=== PATIENT | female | born 1975 | race Caucasian/White ===

== ENCOUNTER 2017-02-17 10:27 | Emergency (ER) | payer SELFPAY ==
--- NOTE | 2017-02-17 12:35 | ER Document Report ---
ED GI/ - General Chief Complaint: Abdominal Pain Stated Complaint: LOWER ABDOMINAL PAIN Time Seen by Provider: 02/17/17 12:22 Mode of Arrival: Ambulatory Information source: Patient Notes: This 41-year-old female patient comes emergency room complaining of 5 day history of medial left lower quadrant abdominal tenderness. There is no nausea vomiting or diarrhea. There is no fever. Her last menstrual period was 2016, it was a little late, it lasted 2 days. Normally they last 4 days. She did have a uterine ablation 2014 for heavy periods, she still does have periods but they are much reel slitter than they were before the ablation. There is no control. TRAVEL OUTSIDE OF THE [place] IN LAST 30 DAYS: No - Related Data Allergies/Adverse Reactions: No Known Allergies Allergy (Unverified 02/17/17 10:29) Past Medical History - General Information source: Patient - Social History Smoking Status: Current Every Day Smoker Cigarette use (# per day): Yes - 1/2 PPD Chew tobacco use (# tins/day): No Smoking Education Provided: No Frequency of alcohol use: Social Drug Abuse: None Occupation: [employer] Lives with: Family Family History: Reviewed & Not Pertinent - Medical History Medical History: Negative Past Surgical History: Reports: Hx Breast Surgery - Breast reduction 2015, Hx Gynecologic Surgery - Uterine ablation 2014 Review of Systems - Review of Systems Constitutional: No symptoms reported EENT: No symptoms reported Cardiovascular: No symptoms reported Respiratory: No symptoms reported Gastrointestinal: No symptoms reported Genitourinary: No symptoms reported Female Genitourinary: See HPI Musculoskeletal: No symptoms reported Skin: No symptoms reported Hematologic/Lymphatic: No symptoms reported Neurological/Psychological: No symptoms reported Physical Exam - Vital signs Vitals: Temp Pulse Resp BP Pulse Ox 98.5 F 92 18 147/80 H 98 02/17/17 10:34 02/17/17 10:34 02/17/17 10:34 02/17/17 10:34 02/17/17 10:34 Interpretation: Normal - General General appearance: Appears well, Alert In distress: Mild - Sitting in a chair mildly uncomfortable from the left lower quadrant pelvic tenderness - HEENT Head: Normocephalic, Atraumatic Eyes: Normal Pupils: PERRL Pharynx: Normal Neck: Normal - Respiratory Respiratory status: No respiratory distress Breath sounds: Normal - Cardiovascular Rhythm: Regular Heart sounds: Normal auscultation Murmur: No - Abdominal Inspection: Obese Bowel sounds: Normal Tenderness: Tender - Very tender to palpate the left lower quadrant medially. Palpating the right lower quadrant causes pain in the left lower quadrant. - Back Back: Normal - Extremities General upper extremity: Normal inspection General lower extremity: Normal inspection - Neurological Neuro grossly intact: Yes - Psychological Associated symptoms: Normal affect, Normal mood - Skin Skin Temperature: Warm Skin Moisture: Dry Skin Color: Normal Course - Re-evaluation Re-evalutation: 02/17/17 12:35 Patient's history and exam are concerning for an ectopic . Ultrasound will be ordered before the results of the patency test are returned. - Vital Signs Vital signs: Temp Pulse Resp BP Pulse Ox 98.5 F 92 18 147/80 H 98 02/17/17 10:34 02/17/17 10:34 02/17/17 10:34 02/17/17 10:34 02/17/17 10:34 - Laboratory Result Diagrams: 02/17/17 12:45 02/17/17 12:45 Laboratory results interpreted by me: 02/17/17 12:45 Calcium 10.3 H - Diagnostic Test Radiology reviewed: Image reviewed, Reports reviewed - Ultrasound shows a little free fluid in the left adnexal region, with no other abnormality. Noncontrast CT scan shows epiploic appendagitis of the sigmoid colon - Consults Dr. Smith Time consulted: 18:05 Consulted provider: other - Case discussed. Recommend NSAIDs and pain control. Return if any worsening or new symptoms. Usually is self-limited after the involved appendage infarcts and resorbs. Discharge - Discharge Clinical Impression: Epiploic appendagitis Condition: Stable Disposition: HOME, SELF-CARE Additional Instructions: Your CT scan shows epiploic appendagitis of the sigmoid colon. The treatment for this will be to take Motrin 800 mg every 8 hours or Aleve 2 tablets every 12 hours. You will receive a prescription for a narcotic pain medication to take if you need that to help control the pain. Rest and take it easy until your pain has resolved. Follow-up with local medical doctor as needed. RETURN TO THE EMERGENCY ROOM IF ANY NEW OR WORSENING SYMPTOMS. Prescriptions: Oxycodone HCl/Acetaminophen [Percocet 5-325 mg Tablet] 1 tab PO ASDIR PRN #15 tablet PRN Reason:
[2017-02-17 12:58] LABS: ABSOLUTE EOSINOPHILS # (AUTO) 0.1 10^3/uL (0.0-0.6); ABSOLUTE LYMPHOCYTES (AUTO) 1.8 10^3/uL (0.5-4.7); ABSOLUTE MONOCYTES (AUTO) 0.5 10^3/uL (0.1-1.4); ABSOLUTE NEUT (AUTO) 6.6 10^3/uL (1.7-8.2); BASOPHILS % (AUTO) 0.4 % (0-2); HEMATOCRIT 42.2 % (36.0-47.0); HEMOGLOBIN 14.5 g/dL (12.0-15.5); LYMPHOCYTES % (AUTO) 20.2 % (13-45); MEAN CORPUSCULAR HEMOGLOBIN 30.2 pg (27.0-33.4); MEAN CORPUSCULAR HGB CONC 34.3 g/dL (32.0-36.0); MEAN CORPUSCULAR VOLUME 88 fl (80-97); MONOCYTES % (AUTO) 5.3 % (3-13); PLATELET COUNT 234 10^3/uL (150-450); SEGMENTED NEUTROPHILS % (AUTO) 73.1 % (42-78); TOTAL CELLS COUNTED % (AUTO) 100 %
[2017-02-17 13:01] LABS: APPEARANCE,URINE CLEAR; BILIRUBIN,URINE NEGATIVE (NEGATIVE); COLOR,URINE YELLOW; GLUCOSE, URINE NEGATIVE (NEGATIVE); KETONES,URINE NEGATIVE (NEGATIVE); LEUKOCYTE ESTERASE,URINE NEGATIVE (NEGATIVE); NITRITE,URINE NEGATIVE (NEGATIVE); PROTEIN,URINE NEGATIVE (NEGATIVE); URINE SPECIFIC GRAVITY 1.011; UROBILINOGEN,URINE NEGATIVE mg/dL (<2.0)
[2017-02-17 13:20] LABS: ALANINE AMINOTRANSFERASE 41 U/L (9-52); ALBUMIN 4.6 g/dL (3.5-5.0); ALKALINE PHOSPHATASE 75 U/L (38-126); ANION GAP 12 (5-19); ASPARTATE AMINO TRANSFERASE 24 U/L (14-36); BILIRUBIN,DIRECT 0.2 mg/dL (0.0-0.4); BILIRUBIN,TOTAL 0.3 mg/dL (0.2-1.3); BLOOD UREA NITROGEN 15 mg/dL (7-20); CALCIUM 10.3 mg/dL (8.4-10.2); CARBON DIOXIDE 27 mmol/L (22-30); CHLORIDE 103 mmol/L (98-107); GLUCOSE 85 mg/dL (75-110); POTASSIUM 4.4 mmol/L (3.6-5.0); SODIUM 142.2 mmol/L (137-145); TOTAL PROTEIN 7.4 g/dL (6.3-8.2)
--- NOTE | 2017-02-17 16:43 | RADIOLOGY REPORT (SQ) ---
EXAM DESCRIPTION: U/S NON OB PEL TV W/DOPPLER COMPLETED DATE/TIME: 02/17/2017 4:21 pm REASON FOR STUDY: might be , LLQ pain x 5 days COMPARISON: None. TECHNIQUE: Dynamic and static grayscale images acquired of the pelvis via transvaginal approach and recorded on PACS. Additional selected color Doppler and spectral images recorded. LIMITATIONS: None. FINDINGS: UTERUS: Hypoechoic area is identified measuring 1.8 x 1.8 x 1.3 cm in diameters which may represent a small uterine fibroid. ENDOMETRIAL STRIPE: No focal or generalized thickening. No masses. CERVIX: No nabothian cysts. RIGHT OVARY: No abnormal masses. RIGHT OVARY DOPPLER: Normal arterial vascular flow without evidence for torsion. LEFT OVARY: No abnormal masses. LEFT OVARY DOPPLER: Normal arterial vascular flow without evidence for torsion. FREE FLUID: Small amount of free fluid is identified. OTHER: No other significant finding. MEASUREMENTS: UTERUS: 7.1 x 4.5 x 4.4 cm ENDOMETRIAL STRIPE: 6 mm RIGHT OVARY: 3.2 x 1.9 x 2.3 cm LEFT OVARY: 3.6 x 2.2 x 2.7 cm IMPRESSION: Small hypoechoic area in the uterus which may represent a small uterine fibroid. Small amount of free fluid is identified. Other findings as noted above TECHNICAL DOCUMENTATION: JOB ID: [id number] [email or web address]- All Rights Reserved
--- NOTE | 2017-02-17 17:34 | RADIOLOGY REPORT (SQ) ---
EXAM DESCRIPTION: CT LTD RENAL STONE PROTOCOL ON COMPLETED DATE/TIME: 02/17/2017 5:23 pm REASON FOR STUDY: L adenexal Free, fluid, LLQ abd /pelvic pain COMPARISON: None. TECHNIQUE: CT scan of the abdomen and pelvis performed without intravenous or oral contrast. Images reviewed with lung, soft tissue, and bone windows. Reconstructed coronal and sagittal MPR images revi ewed. All images stored on PACS. All CT scanners at this facility use dose modulation, iterative reconstruction, and/or weight based d osing when appropriate to reduce radiation dose to as low as reasonably achievable (ALARA). [facility]: Dose Right [facility]: CareDose [facility]: Dose Right [facility]: Teradose 4D [facility]: Smart Preventsys RADIATION DOSE: CT Rad equipment meets quality standard of care and radiation dose reduction techniq ues were employed. CTDIvol: 15.5 mGy. DLP: 838 mGy-cm.mGy. LIMITATIONS: None. FINDINGS: LOWER CHEST: No significant findings. No nodules or infiltrates. NON-CONTRASTED LIVER, SPLEEN, ADRENALS: Evaluation limited by lack of IV contrast. No identified sign ificant masses. PANCREAS: No masses. No peripancreatic inflammatory changes. GALLBLADDER: No identified stones by CT criteria. No inflammatory changes to suggest cholecystitis. RIGHT KIDNEY AND URETER: No suspicious masses. Assessment limited by lack of IV contrast. No signif icant calcifications. No hydronephrosis or hydroureter. LEFT KIDNEY AND URETER: No suspicious masses. Assessment limited by lack of IV contrast. No signifi cant calcifications. No hydronephrosis or hydroureter. AORTA AND RETROPERITONEUM: No aneurysm. No retroperitoneal masses or adenopathy. BOWEL AND PERITONEAL CAVITY: Inflammatory change involving the fat on the anti mesenteric border of t he sigmoid colon compatible with epiploic appendagitis. Small and large bowel loops otherwise normal . APPENDIX: Normal. PELVIS, BLADDER, AND ABDOMINAL WALL:No abnormal masses. No free fluid. Bladder normal. BONES: No significant findings. OTHER: No other significant finding. IMPRESSION: CT FINDINGS COMPATIBLE WITH EPIPLOIC APPENDAGITIS SIGMOID COLON. COMMENT: Quality ID # [id number]: Final reports with documentation of one or more dose reduction techniques (e.g., Automated exposure control, adjustment of the mA and/or kV according to patient size, use of iterative reconstruction technique) TECHNICAL DOCUMENTATION: JOB ID: [id number] [employer]- All Rights Reserved
[2017-02-17 18:47] VITALS: BP 125/75
== END 2017-02-17 18:49 | disposition home or self-care (01) ==
LOC: ER 10:27
DX: K63.89 Other specified diseases of intestine (principal); R10.32 Left lower quadrant pain; R10.814 Left lower quadrant abdominal tenderness; F17.210 Nicotine dependence, cigarettes, uncomplicated; Z98.890 Other specified postprocedural states
CPT/HCPCS: 36415; 76380; 76830; 80053; 81001; 84702; 85025; 93976; 99284

== ENCOUNTER 2020-02-19 05:43 | Day surgery (SDC) | payer OTHER ==
[2020-02-14 10:10] LABS: HEMATOCRIT 38.2 % (36.0-47.0); HEMOGLOBIN 13.4 g/dL (12.0-15.5); MEAN CORPUSCULAR HEMOGLOBIN 30.6 pg (27.0-33.4); MEAN CORPUSCULAR HGB CONC 35.1 g/dL (32.0-36.0); MEAN CORPUSCULAR VOLUME 87 fl (80-97); PLATELET COUNT 183 10^3/uL (150-450); RED BLOOD COUNT 4.37 10^6/uL (3.72-5.28); RED CELL DISTRIBUTION WIDTH 13.4 % (11.5-14.0); WHITE BLOOD COUNT 6.8 10^3/uL (4.0-10.5)
[2020-02-14 10:20] LABS: APPEARANCE,URINE CLEAR; BILIRUBIN,URINE NEGATIVE (NEGATIVE); COLOR,URINE YELLOW; GLUCOSE, URINE NEGATIVE (NEGATIVE); KETONES,URINE TRACE mg/dL (NEGATIVE); LEUKOCYTE ESTERASE,URINE TRACE (NEGATIVE); NITRITE,URINE NEGATIVE (NEGATIVE); PROTEIN,URINE NEGATIVE (NEGATIVE); URINE SPECIFIC GRAVITY 1.024
[2020-02-14 10:35] LABS: ALBUMIN 4.1 g/dL (3.5-5.0); ALKALINE PHOSPHATASE 61 U/L (38-126); ANION GAP 5 (5-19); ASPARTATE AMINO TRANSFERASE 20 U/L (14-36); BILIRUBIN,DIRECT 0.2 mg/dL (0.0-0.4); BILIRUBIN,TOTAL 0.3 mg/dL (0.2-1.3); BLOOD UREA NITROGEN 16 mg/dL (7-20); CALCIUM 9.1 mg/dL (8.4-10.2); CARBON DIOXIDE 26 mmol/L (22-30); CHLORIDE 107 mmol/L (98-107); GLUCOSE 91 mg/dL (75-110); POTASSIUM 4.8 mmol/L (3.6-5.0)
[~2020-02-19 05:43] MED LIST: CEFAZOLIN 1 GM/D5W RTU 1 GM/50 ML RTUPB IV ONE; CEFAZOLIN 1 GM/D5W RTU 1 GM/50 ML RTUPB IV PRN; LACTATED RINGERS 1000 ML IV PRN; LIDOCAINE 0.5% INJ-PF (5 MG/ML) 50 ML SDV SUBCUT PRN
[2020-02-19] MEDS ORDERED: SCOPOLAMINE HYDROBROMIDE 1.5 MG PATCH.TD72 ONE (06:53)
[2020-02-19] MEDS ORDERED: MIDAZOLAM 2 MG/2 ML INJ ONE (06:57)
[2020-02-19] MEDS ORDERED: PROPOFOL INJ 200 MG/20 ML VIAL IV ONE (06:57)
[2020-02-19] MEDS ORDERED: EPHEDRINE SULFATE INJ 50 MG/1 ML AMPULE ONE (06:57)
[2020-02-19] MEDS ORDERED: FENTANYL CITRATE INJ/PF 250 MCG/5 ML AMPULE ONE (06:57)
[2020-02-19] MEDS ORDERED: SUGAMMADEX SODIUM 200 MG/2 ML SDV IV ONE (07:03)
[2020-02-19] MEDS ORDERED: PROMETHAZINE HCL INJ 25 MG/1 ML VIAL IV PRN ×3 (09:21→10:24)
[2020-02-19] MEDS ORDERED: MEPERIDINE HCL/PF INJ 25 MG/1 ML DISP.SYRIN IV PRN (09:21)
[2020-02-19] MEDS ORDERED: FENTANYL CITRATE INJ/PF 100 MCG/2 ML AMPUL IV PRN ×3 (09:21)
[2020-02-19] MEDS ORDERED: DIPHENHYDRAMINE HCL 50 MG/ML VIAL IV PRN (09:21)
[2020-02-19] MEDS ORDERED: HYDROMORPHONE HCL INJ/PF 2 MG/ML AMPULE IV PRN ×2 (09:22→10:24)
[2020-02-19] MEDS ORDERED: OXYCODONE-ACETAMINOPHEN 5-325 MG TABLET PO PRN ×2 (10:24)
[2020-02-19] MEDS ORDERED: SIMETHICONE 80 MG TAB.CHEW PO PRN (10:24)
[2020-02-19] MEDS ORDERED: ACETAMINOPHEN 1,000 MG/100 ML RTUPB IV PRN (10:24)
[2020-02-19] MEDS ORDERED: ACETAMINOPHEN 325 MG TABLET PO PRN (10:24)
[2020-02-19] MEDS ORDERED: RINGERS SOLUTION,LACTATED 1,000 ML IV PRN (10:24)
[2020-02-19] MEDS ORDERED: HYDROMORPHONE HCL INJ/PF 2 MG/ML AMPULE ONE (10:37)
--- NOTE | 2020-02-19 10:41 | Operative Report ---
Operative Report DATE OF SURGERY: 02/19/20 PREOPERATIVE DIAGNOSIS: Uterine pain, post ablation syndrome POSTOPERATIVE DIAGNOSIS: Same OPERATION: [employer] robotic hysterectomy with bilateral salpingectomy SURGEON: ROHINI SAXENA ANESTHESIA: GA TISSUE REMOVED OR ALTERED: Uterus cervix fallopian tubes COMPLICATIONS: None ESTIMATED BLOOD LOSS: 50 cc INTRAOPERATIVE FINDINGS: Normal appearing ovaries PROCEDURE: The patient presents with daily stabbing uterine pain. She is post ablation. Her ultrasound is consistent with post ablation syndrome with areas of echogenicity in the myometrium. She requests hysterectomy for definitive surgical treatment. Patient was taken to the OR and placed in supine position. General anesthesia was induced. She was placed in the dorsolithotomy position using Jaquan stirrups. Her abdomen vagina and perineum were prepared and draped in a sterile fashion. Gregory catheter was placed for drainage of the bladder. A [employer] uterine manipulator was placed on the cervix after first sounding the uterus to 8 cm. An incision was made at the umbilicus and natural umbilical defect was identified and dilated with Jeane clamp allowing a blunt port to be placed. The abdomen was insufflated with CO2 gas. The lateral arm ports were placed under laparoscopic visualization and a right lower quadrant port was placed under laparoscopic visualization for insufflation. The patient was then placed in steep Trendelenburg. The robot was brought to the patient and docked. View of the pelvis was good. The ovaries were inspected and appeared normal. Using the bipolar cautery and monopolar cautery julia the fallopian tubes were removed. These were passed off the field for specimen. Next the left round ligament was cauterized and with bipolar and cut with monopolar julia. The anterior leaf of the broad ligament was incised creating a bladder flap posterior leaf the broad ligament was incised as well. The utero ovarian pedicle was also cauterized with bipolar cautery and cut with monopolar julia. The broad ligament on the left was cauterized directly next to the uterus with bipolar cautery and cut with monopolar julia. At the level of the uterine artery the uterine artery was skeletonized. The uterine artery was also cauterized with bipolar julia but not divided at this time. Attention was turned to the right side of the uterus. Next the right round ligament was cauterized bipolar and divided with monopolar julia. The utero-ovarian pedicle also was cauterized with bipolar and divided with monopolar cautery. Staying directly next the uterus the broad ligament was cauterized with bipolar and divided with monopolar julia. The u terine artery was then skeletonized cauterized with bipolar cautery and then divided with monopolar julia. The cardinal ligament on the right was also cauterized with bipolar cautery and divided with monopolar julia. Attention was turned back to the left uterine artery. This was then divided with monopolar julia. The left cardinal ligament was also cauterized with bipolar cautery and divided with monopolar julia. During this time the bladder flap was also developed. Next a circumferential incision was made on top of the V care cup. This was done with monopolar julia. The uterus was removed through the vagina. The monopolar julia were removed and a needle coach driver was placed at the right hand. A V lock suture was also placed for suturing of the vaginal cuff. Starting at the right side of the vaginal cuff the anterior portion of the vagina was grasped and sutured also included in the stitch was right vaginal sidewall and posterior vaginal cuff. This was looped and brought tight. Next the vaginal cuff was closed anterior to posterior sewing the anterior vaginal cuff to the posterior vaginal cuff. Upon reaching the left side of the vagina anterior vaginal mucosa lateral vaginal sidewall and posterior vaginal mucosa were grasped and the suture. Several sutures were taken medially and the V lock suture was then cut and needle passed off the field. The pelvis was irrigated and suctioned free of fluid hemostasis was good. Both ureters could be seen peristalsing in the pelvis and were normal in size. The urine was clear. The robot was undocked from the patient the laparoscopic ports were removed under visualization. The umbilical port and scope were removed at the same time after first allowing all gas to escape from the abdomen. The fascia at the umbilicus was closed with a 2-0 Vicryl suture. The skin at all 4 sites was closed with a 4-0 undyed Vicryl suture. All instruments were removed from the vagina. The Gregory catheter was removed in the OR. The patient was extubated in the OR and taken recovery room in stable condition.
[2020-02-19] MEDS ORDERED: ACETAMINOPHEN 1,000 MG/100 ML RTUPB IV ONE (11:11)
[2020-02-19] MEDS ORDERED: KETOROLAC TROMETHAMINE INJ/PF 30 MG/1 ML SDV IV SCH (14:00)
[2020-02-19] MEDS ORDERED: DEXAMETHASONE SOD PHOSPHATE INJ 4 MG/1 ML VIAL ONE (14:04)
[2020-02-19] MEDS ORDERED: KETOROLAC TROMETHAMINE 60 MG/2 ML SDV ONE (14:04)
[2020-02-19] MEDS ORDERED: LIDOCAINE 2% INJ-PF (20 MG/ML) 2 ML AMPUL ONE (14:04)
[2020-02-19] MEDS ORDERED: DIPHENHYDRAMINE HCL 50 MG/ML VIAL ONE (14:04)
[2020-02-19] MEDS ORDERED: ONDANSETRON HCL INJ/PF 4 MG/2 ML SDV ONE (14:04)
[2020-02-19] MEDS ORDERED: ROCURONIUM BROMIDE INJ 50 MG/5 ML VIAL IV ONE (14:04)
[2020-02-19] MEDS ORDERED: PHENYLEPHRINE HCL INJ/PF 10 MG/1 ML SDV ONE (14:04)
[2020-02-19 15:17] VITALS: BP 110/58
[2020-02-19 15:35] LABS: ABSOLUTE LYMPHOCYTES (AUTO) 0.6 10^3/uL (0.5-4.7); ABSOLUTE MONOCYTES (AUTO) 0.1 10^3/uL (0.1-1.4); ABSOLUTE NEUT (AUTO) 9.9 10^3/uL (1.7-8.2); BASOPHILS % (AUTO) 0.1 % (0-2); HEMATOCRIT 37.2 % (36.0-47.0); HEMOGLOBIN 12.8 g/dL (12.0-15.5); MEAN CORPUSCULAR HGB CONC 34.4 g/dL (32.0-36.0); MEAN CORPUSCULAR VOLUME 87 fl (80-97); MONOCYTES % (AUTO) 1.3 % (3-13); PLATELET COUNT 180 10^3/uL (150-450); RED BLOOD COUNT 4.26 10^6/uL (3.72-5.28); RED CELL DISTRIBUTION WIDTH 12.6 % (11.5-14.0); SEGMENTED NEUTROPHILS % (AUTO) 92.6 % (42-78); TOTAL CELLS COUNTED % (AUTO) 100 %; WHITE BLOOD COUNT 10.7 10^3/uL (4.0-10.5)
[2020-02-19 15:49] LABS: BLOOD UREA NITROGEN 12 mg/dL (7-20); CALCIUM 8.9 mg/dL (8.4-10.2); CARBON DIOXIDE 24 mmol/L (22-30); CHLORIDE 105 mmol/L (98-107); GLUCOSE 138 mg/dL (75-110); POTASSIUM 5.1 mmol/L (3.6-5.0)
[2020-02-19 16:04] LABS: ANION GAP 5 (5-19)
--- NOTE | 2020-02-19 16:54 | PDOC DISCHARGE SUMMARY ---
Impression - Admit/DC Date/PCP Admission Date/Primary Care Provider: NU BENJAMIN Discharge Date: 02/19/20 - Discharge Diagnosis (1) Uterine pain Is this a current diagnosis for this admission?: Yes (2) Post endometrial ablation syndrome Is this a current diagnosis for this admission?: Yes - Assessment Summary: Patient requests hysterectomy for uterine pain and post ablation syndrome. This was performed this morning. Please see the operative report. She is doing well postoperatively and is tolerating regular diet and oral pain medication and is able to void. She would like to go home tonight. She has follow-up in 1 week. - Additional Information Resuscitation Status: Full Code Discharge Diet: As Tolerated Discharge Activity: Pelvic Rest, Slowly Increase Activity Referrals: MIGUELITO CRISTOBAL FNP-C [Primary Care Provider] - ROHINI SAXENA MD [ACTIVE STAFF] - 03/04/20 2:00 pm (CALL THE OFFICE OF ANY QUESTIONS OR CONCERNS.) Prescriptions: Oxycodone HCl/Acetaminophen [Percocet 5-325 mg Tablet] 2 tab PO Q4HP PRN 7 Days #30 tablet PRN Reason: Ibuprofen [Motrin 800 mg Tablet] 800 mg PO Q6 #30 tablet Home Medications: Fluoxetine HCl [Prozac 20 mg Capsule] 20 mg PO DAILY 02/14/20 Ibuprofen [Motrin 800 mg Tablet] 800 mg PO Q6 #30 tablet 02/19/20 Oxycodone HCl/Acetaminophen [Percocet 5-325 mg Tablet] 2 tab PO Q4HP PRN 7 Days #30 tablet 02/19/20 Additional Information: Follow up appt in a week History of Present Illiness History of Present Illness: LILI SHAH is a 44 year old female Physical Exam - Physical Exam Vital Signs: Temp Pulse Resp BP Pulse Ox 97.9 F 58 L 16 110/58 L 97 02/19/20 15:26 02/19/20 15:26 02/19/20 15:26 02/19/20 15:26 02/19/20 15:26 Intake & Output 02/18/20 02/19/20 02/20/20 06:59 06:59 06:59 Intake Total 0 2440 Output Total 300 Balance 0 2140 Weight 93.44 kg Results Laboratory Results: WBC 10.7 10^3/uL (4.0-10.5) H 02/19/20 15:23 RBC 4.26 10^6/uL (3.72-5.28) 02/19/20 15:23 Hgb 12.8 g/dL (12.0-15.5) 02/19/20 15:23 Hct 37.2 % (36.0-47.0) 02/19/20 15:23 MCV 87 fl (80-97) 02/19/20 15:23 MCH 30.0 pg (27.0-33.4) 02/19/20 15: MCHC 34.4 g/dL (32.0-36.0) 02/19/20 15:23 RDW 12.6 % (11.5-14.0) 02/19/20 15: Plt Count 180 10^3/uL (150-450) 02/19/20 15:23 Lymph % (Auto) 6.0 % (13-45) L 02/19/20 15: Frio % (Auto) 1.3 % (3-13) L 02/19/20 15:23 Eos % (Auto) 0.0 % (0-6) 02/19/20 15:23 Baso % (Auto) 0.1 % (0-2) 02/19/20 15: Absolute Neuts (auto) 9.9 10^3/uL (1.7-8.2) H 02/19/20 15:23 Absolute Lymphs (auto) 0.6 10^3/uL (0.5-4.7) 02/19/20 15: Absolute Monos (auto) 0.1 10^3/uL (0.1-1.4) 02/19/20 15: Absolute Eos (auto) 0.0 10^3/uL (0.0-0.6) 02/19/20: Absolute Basos (auto) 0.0 10^3/uL (0.0-0.2) 02/19/20 15: Seg Neutrophils % 92.6 % (42-78) H 02/19/20 15:23 Sodium 133.4 mmol/L (137-145) L 02/19/20 15:23 Potassium 5.1 mmol/L (3.6-5.0) H 02/19/20 15:23 Chloride 105 mmol/L (98-107) 02/19/20 15:23 Carbon Dioxide 24 mmol/L (22-30) 02/19/20 15:23 Anion Gap 5 (5-19) 02/19/20 15:23 BUN 12 mg/dL (7-20) 02/19/20 15:23 Creatinine 0.77 mg/dL (0.52-1.25) 02/19/20 15:23 Est GFR ( Amer) > 60 (>60) 02/19/20 15:23 Est GFR (MDRD) Non-Af > 60 (>60) 02/19/20 15:23 Glucose 138 mg/dL (75-110) H 02/19/20 15:23 Calcium 8.9 mg/dL (8.4-10.2) 02/19/20 15:23 Total Bilirubin 0.3 mg/dL (0.2-1.3) 02/14/20 09:34 Direct Bilirubin 0.2 mg/dL (0.0-0.4) 02/14/20 09:34 Neonat Total Bilirubin Not Reportable 02/14/20 09:34 Neonat Direct Bilirubin Not Reportable 02/14/20 09:34 Neonat Indirect Bili Not Reportable 02/14/20 09:34 AST 20 U/L (14-36) 02/14/20 09:34 ALT 19 U/L (<35) 02/14/20 09:34 Alkaline Phosphatase 61 U/L (38-126) 02/14/20 09:34 Total Protein 7.0 g/dL (6.3-8.2) 02/14/20 09:34 Albumin 4.1 g/dL (3.5-5.0) 02/14/20 09:34 Urine Color YELLOW 02/14/20 09:34 Urine Appearance CLEAR 02/14/20 09:34 Urine pH 5.0 (5.0-9.0) 02/14/20 09:34 Ur Specific [place] 1.024 02/14/20 09:34 Urine Protein NEGATIVE mg/dL (NEGATIVE) 02/14/20 09:34 Urine Glucose (UA) NEGATIVE mg/dL (NEGATIVE) 02/14/20 09:34 Urine Ketones TRACE mg/dL (NEGATIVE) H 02/14/20 09:34 Urine Blood NEGATIVE (NEGATIVE) 02/14/20 09:34 Urine Nitrite NEGATIVE (NEGATIVE) 02/14/20 09:34 Urine Bilirubin NEGATIVE (NEGATIVE) 02/14/20 09:34 Urine Urobilinogen 2.0 mg/dL (<2.0) H 02/14/20 09:34 Ur Leukocyte Esterase TRACE (NEGATIVE) H 02/14/20 09:34 Urine WBC (Auto) 0 /HPF 02/14/20 09:34 Urine RBC (Auto) 0 /HPF 02/14/20 09:34 Squamous Epi Cells Auto 1 /HPF 02/14/20 09:34 Urine Mucus (Auto) RARE /LPF 02/14/20 09:34 Urine Ascorbic Acid NEGATIVE (NEGATIVE) 02/14/20 09:34 Urine HCG, Qual NEGATIVE (NEGATIVE) 02/19/20 05:30 COVID-19 Source See comment 02/14/20 09:31 COVID-19 (JONNY) Not Detected (Not Detect) 02/14/20 09:31 Blood Type A POSITIVE 02/14/20 09:34 Antibody Screen NEGATIVE 02/14/20 09:34 Stroke Is this a Stroke Patient?: No Acute Heart Failure Is this a Heart Failure Patient?: No
[2020-02-19] MEDS ORDERED: IBUPROFEN 800 MG TABLET PO SCH (18:00)
== END 2020-02-19 18:20 | disposition home or self-care (01) ==
LOC: OROUT 05:43 → 2N 11:38 → OROUT 18:20
PROVIDERS: ATTEND Obstetrics & Gynecology
DX: N87.0 Mild cervical dysplasia (principal); N94.89 Other specified conditions associated with female genital organs and menstrual cycle; N99.85 Post endometrial ablation syndrome; N92.6 Irregular menstruation, unspecified; Z01.812 Encounter for preprocedural laboratory examination; Z20.822 Contact with and (suspected) exposure to COVID-19; Z79.899 Other long term (current) drug therapy; F32.9 Major depressive disorder, single episode, unspecified
CPT/HCPCS: 58571; S2900; 36415; 80048; 80053; 81001; 81025; 840; 85025; 85027; 86850; 86900; 86901; 87635; 88307; C1758; C9803; J0131; J0690; J1100; J1170; J1200; J1885; J2250; J2370; J2405; J2704; J3010; J3490